=== PATIENT | female | born 1975 ===

== ENCOUNTER → 2024-12-24 10:08 | Outpatient (BNVA) | payer SELFPAY | PROVIDERS: Visit Provider Internal Medicine | DX: T78.49XA Other allergy, initial encounter (principal); X58.XXXA Exposure to other specified factors, initial encounter | CPT/HCPCS: 36415; 86003 ==

== ENCOUNTER 2025-02-13 11:37 | Outpatient (CLI) | payer SELFPAY ==
[2025-02-13 12:17] VITALS: PULSE 77; RESP 18; O2SAT 96
== END 2025-02-13 11:38 | disposition home or self-care (01) ==
PROVIDERS: Visit Provider Internal Medicine
DX: J44.9 Chronic obstructive pulmonary disease, unspecified (principal); J98.8 Other specified respiratory disorders; R94.2 Abnormal results of pulmonary function studies
CPT/HCPCS: 94060; 94726; 94729; J7613

== ENCOUNTER 2025-02-13 12:42 | Outpatient (CLI) | payer SELFPAY ==
--- NOTE | 2025-02-13 11:00 | CTR_ITS ---
PROCEDURE INFORMATION: Exam: CT Chest Without Contrast, Diagnostic, High Resolution Exam date and time: 02/13/2025 3:14 PM Age: 49 years old Clinical indication: Interstitial changes, HX of covid TECHNIQUE: Imaging protocol: Diagnostic computed tomography of the chest without contrast. Exam was performed with high resolution protocol. Radiation optimization: All CT scans at this facility use at least one of these dose optimization techniques: automated exposure control; mA and/or kV adjustment per patient size (includes targeted exams where dose is matched to clinical indication); or iterative reconstruction. COMPARISON: No relevant prior studies available. RADIATION DOSE METRICS: Total DLP (mGy-cm): 1073.19 FINDINGS: Lungs: There is mild linear atelectasis involving the lingula and the right lung base. Both lungs demonstrate paraseptal and centrilobular emphysematous changes superiorly. No infiltrate or mass noted. Pleural spaces: Unremarkable. No pneumothorax. No pleural effusion. Heart: Unremarkable. No cardiomegaly. No pericardial effusion. Coronary arteries: Coronary artery calcifications are noted. Vasculature: Unremarkable. No aortic aneurysm. Lymph nodes: Unremarkable. No enlarged lymph nodes. Bones/joints: The thoracic spine demonstrates scoliosis. Soft tissues: Unremarkable. CT/CT chest w/o HI-Res(Pulm Only) IMPRESSION: Mild emphysematous changes. No significant interstitial fibrosis noted. COMMENTS: The presence of pulmonary emphysema on CT is an independent risk factor for lung cancer. In the absence of a history or active diagnosis of lung cancer, it is recommended that this patient with emphysema be evaluated for enrollment in a low dose CT lung cancer screening program.
== END 2025-02-13 12:43 | disposition home or self-care (01) ==
PROVIDERS: Visit Provider Internal Medicine
DX: J84.9 Interstitial pulmonary disease, unspecified (principal); Z86.16 Personal history of COVID-19
CPT/HCPCS: 71250